=== PATIENT | female | born 2000 | race Caucasian/White ===

== ENCOUNTER 2021-12-24 10:04 | Emergency (ER) | payer MEDICAID ==
[~2021-12-24] VITALS: Ht 154.9 cm; Wt 54.4 kg
[2021-12-24 10:37] VITALS: BP 114/76
[2021-12-24] MEDS ORDERED: LACTULOSE 20Gm/30ML SOLN PO ONE (11:15)
[2021-12-24] MEDS ORDERED: SENN1CAP4 PO (11:21)
[2021-12-24] MEDS ORDERED: DICY10CA PO (11:21)
== END 2021-12-24 11:42 | disposition home or self-care (01) ==
LOC: ER 10:04
DX: K59.00 Constipation, unspecified (principal); E11.9 Type 2 diabetes mellitus without complications; Z79.2 Long term (current) use of antibiotics; Z79.899 Other long term (current) drug therapy
CPT/HCPCS: 74018; 81002; 81025

== ENCOUNTER 2022-03-21 10:14 | Emergency (ER) | payer MEDICAID ==
[~2022-03-21] VITALS: Ht 154.9 cm; Wt 53.8 kg
[~2022-03-21 10:14] MED LIST: DICY10CA PO; SENN1CAP4 PO
[2022-03-21] MEDS ORDERED: SODIUM CHLORIDE 0.9% 1,000 ML IV ONE ×3 (11:00→14:45)
[2022-03-21 11:29] LABS: Eosinophils # (auto) 0 10 ^3/uL (0-0.8); Mean Corpuscular Hgb Conc. 31.8 g/dL (32.0-36.0); White Blood Cell 13.3 10^3/uL (4.4-10.8)
[2022-03-21 11:31] LABS: Basophils # (auto) 0.1 10 ^3/uL (0-0.2); Basophils % (auto) 0.5 % (0.0-2.0); Hematocrit 29.8 % (36.0-46.0); Hemoglobin 9.5 g/dL (12.2-16.2); Lymphocytes # (auto) 1.3 10 ^3/uL (0.4-5.4); Lymphocytes % (auto) 9.7 % (10.0-50.0); Mean Corpuscular Hemoglobin 23.4 pg (28.0-32.0); Mean Corpuscular Volume 73.4 fL (80.0-100.0); Monocytes % (auto) 7.4 % (0.0-12.0); Neutrophils % (auto) 82.4 % (37.0-80.0); Red Blood Cells 4.06 10^6/uL (4.0-5.20); Red Cell Distribution Width 15.3 % (11.8-14.3)
[2022-03-21 11:52] LABS: Albumin 3.6 g/dL (3.4-5.0); Calcium 8.9 mg/dL (8.5-10.1); Potassium 3.4 mmol/L (3.5-5.1)
[2022-03-21 12:01] LABS: Bilirubin, Total 0.4 mg/dL (0.2-1.0); Total Protein 7.4 g/dL (6.4-8.2)
[2022-03-21] MEDS ORDERED: CEPH-509 PO ×2 (13:54→23:50)
[2022-03-21 14:26] LABS: Urine Bacteria FEW /hpf (None Seen); Urine Blood 3+ /uL (Negative); Urine Mucus FEW (None Seen); Urine Specific Gravity 1.013 (1.001-1.035); Urine WBC 58 /hpf (0 - 5)
[2022-03-21 14:43] LABS: Alcohol, Urine < 3.0 mg/dL (0-10); Amphetamine Screen, Urine NEGATIVE (NEGATIVE); Barbiturate Scree,Urine NEGATIVE (NEGATIVE); Benzodiazephine Screen, Urine NEGATIVE (NEGATIVE); Cannabinoid Screen, Urine NEGATIVE (NEGATIVE); Cocaine Screen, Urine NEGATIVE (NEGATIVE); Opiate Scree,Urine NEGATIVE (NEGATIVE); Phencyclidine Screen, Urine NEGATIVE (NEGATIVE)
[2022-03-21] MEDS ORDERED: cefTRIAXone 1GM/50ML D5W 50 ML IV ONE ×2 (14:45→17:30)
[2022-03-21] MEDS ORDERED: ONDANSETRON HCL 4 MG/2 ML VIAL IV ONE (14:45)
[2022-03-21] MEDS ORDERED: MORPHINE SULFATE 4 MG/ML SYR/VIAL IV ONE ×2 (16:15→20:15)
[2022-03-21] MEDS ORDERED: CLINDAMYCIN 300MG IV 50 ML IV ONE (17:30)
[2022-03-21] MEDS ORDERED: DOCUSATE SOD 100 MG CAP PO ONE ×2 (18:00→18:10)
[2022-03-22] VITALS: BP 129/67
== END 2022-03-22 00:10 | disposition still patient (30) ==
LOC: EDBD 10:14 → ER 10:29
DX: N39.0 Urinary tract infection, site not specified (principal); R55 Syncope and collapse; E87.6 Hypokalemia; E11.9 Type 2 diabetes mellitus without complications; Z79.2 Long term (current) use of antibiotics; Z79.899 Other long term (current) drug therapy
CPT/HCPCS: 36415; 74176; 76830; 76856; 80053; 80307; 81001; 81025; 84702; 85025; 87086; 96361; 96365; 96366; 96368; 96375; 96376; 99285; J0696; J2270; J2405; J3490; J7030